=== PATIENT | male | born 1945 | race Caucasian/White ===

== ENCOUNTER 2018-02-13 12:46 | Emergency (ER) | payer MEDICARE ==
[2018-02-13 13:07] VITALS: BP 128/67
[2018-02-13] MEDS ORDERED: Silver Nitrate/Potassium Nitr* 1 EA STICK TOPICAL ONE (14:06)
--- NOTE | 2018-02-13 14:07 | UC ---
Throat Pain/Nasal Velasquez HPI - HPI Summary HPI Summary: Pt presents with recurrent epistaxis left nare. Pt states approx 1 week ago had nasal bleeding. PT was evaluated in and and then ED in [facility]. Pt states was cauterizied which worked for approx 5 days. starting yesterday again with nasal bleeding. Pt has been using flonase and decongestant as instructed. States started humidfying air this week. no fever, chills. no headache. no anticoagulant. No h/o hypertension. Pt moved to [place] this week - no PCP yet. Pt able to stop with direct palp. No current bleeding Pt's medications reviewed this visit - History of Current Complaint Chief Complaint: UCGeneralIllness Stated Complaint: RECURRENT NOSE BLEEDS Time Seen by Provider: 02/13/18 13:53 Hx Obtained From: Patient Onset/Duration: Sudden Onset Severity: Mild Pain Intensity: 0 - Allergies/Home Medications Allergies/Adverse Reactions: Allergies Allergy/AdvReac Type Severity Reaction Status Date / Time shellfish derived Allergy Severe Anaphylatic Verified 02/13/18 13:07 Shock Home Medications: Home Medications Fluticasone NASAL SPRAY 50MCG* [Flonase NASAL SPRAY 50MCG*] 2 spray BOTH NARES DAILY 02/13/18 [History Confirmed 02/13/18] Oxymetazoline 0.05% NASAL SPR* [Afrin 0.05% NASAL SPRAY*] 1 spray NASAL Q12H PRN 02/13/18 [History Confirmed 02/13/18] PMH/Surg Hx/FS Hx/Imm Hx Previously Healthy: Yes - Surgical History Surgical History: Yes Surgery Procedure, Year, and Place: left leg 1953. tonsils as child - Family History Known Family History: Positive: Other - non cotnirbutory - Social History Occupation: Retired Alcohol Use: None Substance Use Type: None Smoking Status (MU): Never Smoked Tobacco Review of Systems Constitutional: Negative Skin: Negative ENT: Epistaxis All Other Systems Reviewed And Are Negative: Yes Physical Exam - Summary Physical Exam Summary: Vital Signs Reviewed: Yes A+Ox3, no distress Eyes: Conjunctiva Clear, CHICO. EOM intact and full ENT: Hearing grossly normal TM x 2 clear Right nares - when viewed with scope pt started to bleed, anterior, septal. left without bleeding, mmoist, uvula midline, no exudate, no erythema Neck: Positive: Supple Respiratory: Positive: No respiratory distress, No accessory muscle use + CTA throughout no w/r Cardiovascular: RRR nl s1, s2 no m/r CBT <2 sec abd soft + BS nt/nd no guarding, no distension Musculoskeletal Exam: MUELLER x 4 without difficulty Strength Intact, ROM Intact Neurological: Positive: Alert, + sensation throughout Psychological: Positive: Normal Response To Family Skin: Positive: no rash, no ecchymosis Triage Information Reviewed: Yes Vital Signs: Initial Vital Signs Temp 98.0 F 02/13/18 13:02 Pulse 64 02/13/18 13:02 Resp 20 02/13/18 13:02 BP 128/67 02/13/18 13:02 Pulse Ox 96 02/13/18 13:02 Throat Pain/Nasal Course/Dx - Course Course Of Treatment: Pt with recurrent epistaxis right nares. Upon inspection, started to bleedi anterior right septal area direct pressue held. using silver nitrate cauterized with good hemostatis. Pt monitored - no recurrent bleeding. Made appt with [facility] on Friday at 1:45pm - pt to call to confirm. recommend humidified air. vasoline at oepning of nares. no blowing, picking. return precuations. pt comfortable and in agreement with plan - Differential Dx/Diagnosis Provider Diagnoses: epistaxis right nares Discharge - Sign-Out/Discharge Documenting (check all that apply): Patient Departure All imaging exams completed and their final reports reviewed: No Studies - Discharge Plan Condition: Stable Disposition: HOME Patient Education Materials: Nosebleed (ED) Referrals: [facility] [place] [facility] [Outside] No Primary Care Phys,NOPCP [Primary Care Provider] - [facility] Ent Provider,[facility] D [[email or web address], [employer], OTHER] - (Friday, 1:45pm) Additional Instructions: Do not rub, blow, or pick you nose It is recommmended you do no use your nasal sprays until you are seen in follow- up with ENT. You have an appointmenta at 1:45pm on Friday - you MUST call today to confirm this appointment- they are expecting you [address] [place] [address] . - It is recommended you put vasoline at the opening of your nose to keep air moist - If you develop a nose bleed - lean forward, hold steady pressure. If you are unable to control - return here, go to the emergency department, or contact the ENT office - humidify the air in the room where sleep - you have been given the contact information for the physician referral center - this office can help you establish with a new primary care provider - Billing Disposition and Condition Condition: STABLE Disposition: Home
== END 2018-02-13 14:35 | disposition home or self-care (01) ==
LOC: UCCORT 12:46
DX: R04.0 Epistaxis (principal); Z91.013 Allergy to seafood
CPT/HCPCS: 17250; 99201; A9270-GY; G0463

== ENCOUNTER 2018-08-26 12:10 | Emergency (ER) | payer MEDICARE ==
[2018-08-26 13:10] VITALS: BP 130/87
[2018-08-26 13:34] LABS: Influenza A Molecular NEGATIVE (Negative); Influenza B Molecular NEGATIVE (Negative)
--- NOTE | 2018-08-26 13:53 | UC ---
FLU HPI - HPI Summary HPI Summary: Pt c/o sudden onset of fever, body aches X 1 week. - History of Current Complaint Chief Complaint: UCRespiratory Stated Complaint: HEADACHE ACHY CHILLS Time Seen by Provider: 08/26/18 13:33 Hx Obtained From: Patient Onset/Duration: Sudden Onset, Lasting Days, Still Present Severity Currently: Mild Severity Initially: Mild Pain Intensity: 5 Associated Signs & Symptoms: Positive: Fever, Myalgia, Cough Related Hx: Possible Flu/Infectious Exposure - Risk Factors Influenza Risk Factors: Negative - Allergy/Home Medications Allergies/Adverse Reactions: Allergies Allergy/AdvReac Type Severity Reaction Status Date / Time shellfish derived Allergy Severe Anaphylatic Verified 08/26/18 13:10 Shock Home Medications: Home Medications Acetaminophen [Tylenol Extra Strength] 1 - 2 tab PO DAILY PRN 08/26/18 [History Confirmed 08/26/18] PMH/Surg Hx/FS Hx/Imm Hx Previously Healthy: Yes - Surgical History Surgical History: Yes Surgery Procedure, Year, and Place: left leg 1953. tonsils as child - Family History Known Family History: Positive: Cardiac Disease, Other - non cotnirbutory - Social History Occupation: Retired Lives: With Family Alcohol Use: None Substance Use Type: None Smoking Status (MU): Never Smoked Tobacco Have You Smoked in the Last Year: No Review of Systems All Other Systems Reviewed And Are Negative: Yes Constitutional: Positive: Fever, Chills, Fatigue Skin: Positive: Negative Eyes: Positive: Negative ENT: Positive: Sinus Congestion Respiratory: Positive: Shortness Of Breath, Cough Cardiovascular: Positive: Negative Gastrointestinal: Positive: Negative Genitourinary: Positive: Negative Motor: Positive: Negative Neurovascular: Positive: Negative Musculoskeletal: Positive: Myalgia Neurological: Positive: Negative Psychological: Positive: Negative Is Patient Immunocompromised?: No Physical Exam Triage Information Reviewed: Yes Appearance: Ill-Appearing Vital Signs: Initial Vital Signs Temp 99.9 F 08/26/18 13:00 Pulse 88 08/26/18 13:00 Resp 24 08/26/18 13:00 BP 130/87 08/26/18 13:00 Pulse Ox 97 08/26/18 13:00 Vital Signs Reviewed: Yes Eye Exam: Normal ENT: Positive: Nasal congestion Dental Exam: Normal Neck exam: Normal Respiratory Exam: Normal Cardiovascular Exam: Normal Musculoskeletal Exam: Normal Neurological Exam: Normal Psychological Exam: Normal Skin Exam: Normal Flu Course/Dx - Differential Dx/Diagnosis Differential Diagnosis/HQI/PQRI: Bronchitis, RSV Provider Diagnosis: Viral syndrome Discharge - Sign-Out/Discharge Documenting (check all that apply): Patient Departure All imaging exams completed and their final reports reviewed: No Studies - Discharge Plan Condition: Stable Disposition: HOME Patient Education Materials: Viral Syndrome (ED), Safe Use of NSAIDs (ED) [place]errals: [facility] [Outside] - As Soon As Possible No Primary Care Phys,NOPCP [Primary Care Provider] - - Billing Disposition and Condition Condition: STABLE Disposition: Home - Attestation Statements Provider Attestation: I was available for consult. This patient was seen by the SARAH. The patient was not presented to, seen by, or examined by me. -Fiona
== END 2018-08-26 14:05 | disposition home or self-care (01) ==
LOC: UCCORT 12:10
DX: B34.9 Viral infection, unspecified (principal); Z91.013 Allergy to seafood
CPT/HCPCS: 99212; G0463

== ENCOUNTER 2018-08-27 10:30 | Emergency (ER) | payer MEDICARE ==
[2018-08-27 11:44] VITALS: BP 125/68
[2018-08-27] MEDS ORDERED: methylPREDNISolone 125 MG* 2 ML VIAL IM ONE (12:49)
[2018-08-27] MEDS ORDERED: Famotidine TAB* 20 MG PO ONE (12:50)
--- NOTE | 2018-08-27 13:22 | UC ---
Skin Complaint HPI - HPI Summary HPI Summary: was seen here yesterday, diagnosed with viral syndrome. States red, itching area on hands, with swelling on L wrist, and L elbow. States elbow is hard to straighten. Denies any fever. Worsened over the night. - History of Current Complaint Chief Complaint: UCSkin Time Seen by Provider: 08/27/18 12:22 Stated Complaint: SKIN CONCERN Hx Obtained From: Patient Onset/Duration: Sudden Onset, Lasting Weeks - 1 Skin Exposure Onset/Duration: Weeks Ago - 1 Timing: Constant Onset Severity: Mild Current Severity: Moderate Pain Intensity: 6 Location: Diffuse Character: Swelling, Pruritus, Redness, Painful Aggravating Factor(s): Humidity, Touch Alleviating Factor(s): Nothing Associated Signs & Symptoms: Positive: Fever, Cough - Allergy/Home Medications Allergies/Adverse Reactions: Allergies Allergy/AdvReac Type Severity Reaction Status Date / Time shellfish derived Allergy Severe Anaphylatic Verified 08/27/18 11:39 Shock PMH/Surg Hx/FS Hx/Imm Hx Previously Healthy: Yes - Surgical History Surgical History: Yes Surgery Procedure, Year, and Place: left leg 1953. tonsils as child - Family History Known Family History: Positive: Cardiac Disease, Other - non cotnirbutory - Social History Alcohol Use: None Substance Use Type: None Smoking Status (MU): Never Smoked Tobacco Have You Smoked in the Last Year: No Review of Systems All Other Systems Reviewed And Are Negative: Yes Constitutional: Positive: Fever, Chills, Fatigue Skin: Positive: Rash Is Patient Immunocompromised?: No Physical Exam Triage Information Reviewed: Yes Appearance: No Pain Distress, Ill-Appearing, Obese Vital Signs: Initial Vital Signs Temp 100.8 F 08/27/18 11:39 Pulse 85 08/27/18 11:39 Resp 20 08/27/18 11:39 BP 125/68 08/27/18 11:39 Pulse Ox 95 08/27/18 11:39 Vital Signs Reviewed: Yes Eye Exam: Normal ENT Exam: Normal Dental Exam: Normal Neck exam: Normal Respiratory Exam: Normal Respiratory: Positive: Chest non-tender, Lungs clear, Normal breath sounds Cardiovascular Exam: Normal Cardiovascular: Positive: RRR, No Murmur, Pulses Normal Abdominal Exam: Normal Abdomen Description: Positive: Nontender, No Organomegaly, Soft Bowel Sounds: Positive: Present Musculoskeletal Exam: Normal Neurological Exam: Normal Psychological Exam: Normal Skin: Positive: Rashes - multiple hives on bilateral arms, warmth and erythema of bilateral elbows and wrists. Course/Dx - Course Course Of Treatment: take the medications as prescribed. 2. Follow up with the steam fitter helper, I have referred you to one locally, if you do not have one close to you. 3. If you develop any shortness of breath please report to ER. - Differential Diagnoses - Skin Complaint Differential Diagnoses: Abscess, Allergic Reaction, Cellulitis, Urticaria - Diagnoses Provider Diagnosis: Urticaria, Allergic reaction Discharge - Sign-Out/Discharge Documenting (check all that apply): Patient Departure All imaging exams completed and their final reports reviewed: No Studies - Discharge Plan Condition: Stable Disposition: HOME Prescriptions: Cephalexin CAP* [Keflex CAP*] 500 mg PO BID #14 cap Famotidine TAB* [Pepcid 20 MG TAB*] 20 mg PO DAILY #14 tab predniSONE [Prednisone 20 MG TAB] 20 mg PO DAILY #18 tablet Referrals: No Primary Care Phys,NOPCP [Primary Care Provider] - Mynor Gutierres MD [Medical Doctor] - Additional Instructions: 1. take the medication as prescribed. 2. Follow up with an steam fitter helper, i have made a referral to one locally, if you cannot find one where you live. 3. If you develop any shortness of breath report to ER. - Billing Disposition and Condition Condition: STABLE Disposition: Home - Attestation Statements Provider Attestation: I was available for consult. This patient was seen by the SARAH. The patient was not presented to, seen by, or examined by me. -Fiona
== END 2018-08-27 13:34 | disposition home or self-care (01) ==
LOC: UCCORT 10:30
DX: L50.9 Urticaria, unspecified (principal); T78.40XA Allergy, unspecified, initial encounter; Z91.013 Allergy to seafood; X58.XXXA Exposure to other specified factors, initial encounter
CPT/HCPCS: 87651; 96372; 99212; A9270-GY; G0463; J2930

== ENCOUNTER 2018-09-11 08:38 | Emergency (ER) | payer MEDICARE ==
[2018-09-11 08:56] VITALS: BP 119/70
--- NOTE | 2018-09-11 09:18 | UC ---
Skin Complaint HPI - HPI Summary HPI Summary: 73-year-old male 73-year-old male comes in with a chief complaint of a rash on both of his hands fevers and chills and some shortness of breath. Symptoms started 2 days ago. Patient had similar symptoms couple of weeks ago when the rash started on his hands and then moved up his arms and also had some on his chest. Backbend he was treated with Keflex Pepcid and prednisone and he improved. He just finished steroids 5 days ago and the present symptoms started 2 days ago. - History of Current Complaint Chief Complaint: UCGeneralIllness Time Seen by Provider: 09/11/18 08:58 Stated Complaint: CHILLS Pain Intensity: 6 - Allergy/Home Medications Allergies/Adverse Reactions: Allergies Allergy/AdvReac Type Severity Reaction Status Date / Time shellfish derived Allergy Severe Anaphylatic Verified 08/27/18 11:39 Shock PMH/Surg Hx/FS Hx/Imm Hx Previously Healthy: Yes - Surgical History Surgical History: Yes Surgery Procedure, Year, and Place: left leg 1953. tonsils as child - Family History Known Family History: Positive: Cardiac Disease, Other - non cotnirbutory - Social History Alcohol Use: None Substance Use Type: None Smoking Status (MU): Never Smoked Tobacco Have You Smoked in the Last Year: No Review of Systems All Other Systems Reviewed And Are Negative: Yes Constitutional: Positive: Fever, Chills, Other - reports had dizziness when taking keflex from last visit Skin: Positive: Other - see hpi Eyes: Positive: Negative ENT: Positive: Negative Respiratory: Positive: Shortness Of Breath, Cough Cardiovascular: Positive: Negative Gastrointestinal: Positive: Negative Genitourinary: Positive: Negative Motor: Positive: Negative Neurovascular: Positive: Negative Musculoskeletal: Positive: Myalgia Neurological: Positive: Negative Psychological: Positive: Negative Is Patient Immunocompromised?: No Physical Exam Triage Information Reviewed: Yes Appearance: Well-Appearing, No Pain Distress, Well-Nourished Vital Signs: Initial Vital Signs Temp 100.0 F 09/11/18 08:52 Pulse 85 09/11/18 08:52 Resp 19 09/11/18 08:52 BP 119/70 09/11/18 08:52 Pulse Ox 97 09/11/18 08:52 Vital Signs Reviewed: Yes Eye Exam: Normal Eyes: Positive: Conjunctiva Clear ENT: Positive: Pharynx normal. Negative: Nasal drainage Neck: Positive: Supple Respiratory: Positive: Lungs clear, Normal breath sounds, No respiratory distress Cardiovascular: Positive: RRR Musculoskeletal Exam: Normal Musculoskeletal: Positive: Strength Intact, ROM Intact Neurological Exam: Normal Neurological: Positive: Alert, Muscle Tone Normal Psychological: Positive: Age Appropriate Behavior Skin: Positive: Other - ERYTHEMATOUS PATCHES 2-3CM WITH FLAT BORDERS THAT JAZMIN ON HANDS AND FORE ARMS Course/Dx - Course Course Of Treatment: Patient Name: CAROLYN BAI Medical Record#: [id number] Ordering Physician: Leonardo Alejandro MD Acct.#: [id number] : 1945 Age: 73 Sex: M Location: [facility] Exam Date: 09/11/18909 ADM Status: REG ER Order Information: CHEST PA LAT 2 VWS Accession Number: [id number] CPT: 44622 HISTORY: fever,chills,sob,rash on arms COMPARISONS: None relevant available at the time of dictation. VIEWS: 4: Frontal dual-energy and lateral views of the chest. FINDINGS: CARDIOMEDIASTINAL SILHOUETTE: The cardiomediastinal silhouette is normal. CALLY: The cally are normal. PLEURA: The costophrenic angles are sharp. No pleural abnormalities are noted. LUNG PARENCHYMA: There is hyperinflation with flattening of the diaphragm and expansion of the AP diameter of the chest. ABDOMEN: The upper abdomen is clear. There is no subphrenic gas. BONES AND SOFT TISSUES: No bone or soft tissue abnormalities are noted. OTHER: None. IMPRESSION: HYPERINFLATION, CONSISTENT WITH COPD. NO ACTIVE CARDIOPULMONARY DISEASE. <Electronically signed by Paras Bustos MD in OV> 09/11/18926 I discussed the chest x-ray with the patient. At this time the cause of the rash fever and dyspnea is not clear. Patient reports improvement with the prior treatment with Keflex prednisone and Pepcid. Therefore we will treat the same way this time. Patient reports that he got dizzy last time when he took the Keflex therefore switching him over to Augmentin. We'll also treat with the prednisone taper and also Pepcid by mouth. Patient is from the [facility] and he does not have a primary care physician at this time as his primary care doctor . Patient states that he will contact the office today to get a new primary care physician. If the patient worsens he needs to get reevaluated sooner. CBC CRP CMP pending. - Diagnoses Provider Diagnosis: Rash, Fever, Dyspnea Discharge - Sign-Out/Discharge Documenting (check all that apply): Patient Departure All imaging exams completed and their final reports reviewed: Yes - Discharge Plan Condition: Stable Disposition: HOME Prescriptions: Amoxicillin/Clavulanate TAB* [Augmentin TAB 875*] 875 mg PO BID #20 tab Famotidine TAB* [Pepcid 20 MG TAB*] 20 mg PO BID #14 tab predniSONE TAB* [Deltasone 20 MG TAB*] 20 mg PO DAILY #18 tab Patient Education Materials: Fever in Adults (ED), Acute Rash (ED), Dyspnea (ED ) Referrals: [facility] [place] [facility] [Outside] [facility] [Outside] Additional Instructions: FOLLOW UP WITH YOUR DOCTOR. GET RECHECKED SOONER IF YOUR CONDITION WORSENS OR ANY QUESTIONS OR CONCERNS. - Billing Disposition and Condition Condition: STABLE Disposition: Home
[2018-09-11 14:03] LABS: ABS Lymphocytes 1.3 10^3/ul (1.0-4.8); ABS Monocytes 0.7 10^3/ul (0-0.8); ABS Neutrophils 5.4 10^3/ul (1.5-7.7); Eosinophil % 0.5 %; Hematocrit 38 % (42-52); Hemoglobin 12.9 g/dL (14.0-18.0); Lymphocyte % 17.8 %; Mean Corpuscular HGB Conc 34 g/dL (31-36); Mean Corpuscular Hemoglobin 30 pg (27-31); Mean Corpuscular Volume 88 fL (80-94); Mean Platelet Volume 8.1 fL (7.4-10.4); Platelet Count 175 10^3/uL (150-450); Red Blood Count 4.36 10^6 /uL (4.18-5.48); Red Cell Distribution Width 14 % (10.5-15); White Blood Count 7.5 10^3/uL (3.5-10.8)
[2018-09-11 14:07] LABS: Albumin 3.6 g/dL (3.2-5.2); Calcium 8.4 mg/dL (8.6-10.3); Potassium 4.2 mmol/L (3.5-5.0)
[2018-09-11 14:13] LABS: Albumin/Globulin Ratio 1.1 (1-3); BUN/Creatinine Ratio 18.5 (8-20); C Reactive Protein 150.33 mg/L (<8.01); EGFR Non-African American 93.4 (>60); Globulin 3.4 g/dL (2-4)
--- NOTE | 2018-09-12 08:24 | UC ---
- Progress Note Progress Note: Lab work comes back from September 11, 2018. Glucose is slightly elevated at 122. Normal ranges 70-100. Calcium slightly low at 8.4. Normal ranges 8.6-10.3. CRP is elevated at 150. Normal ranges less than 8. Nursing to call the patient and inform him of the lab values. If the patient is feeling worse any sick he needs to get reevaluated in an emergency department. If he is improving or not any worse than he needs to make sure he has a follow- up with his primary care physician. Overall if he has any concerns and feels the need to be reevaluated in emergency department would be the appropriate facility. Course/Dx - Diagnoses Provider Diagnoses: Rash, Fever, Dyspnea Discharge - Sign-Out/Discharge Documenting (check all that apply): Patient Departure All imaging exams completed and their final reports reviewed: Yes - Discharge Plan Condition: Stable Disposition: HOME Prescriptions: Amoxicillin/Clavulanate TAB* [Augmentin TAB 875*] 875 mg PO BID #20 tab Famotidine TAB* [Pepcid 20 MG TAB*] 20 mg PO BID #14 tab predniSONE TAB* [Deltasone 20 MG TAB*] 20 mg PO DAILY #18 tab Patient Education Materials: Fever in Adults (ED), Acute Rash (ED), Dyspnea (ED ) Referrals: [facility] [Outside] [facility] [place] [facility] [Outside] Additional Instructions: FOLLOW UP WITH YOUR DOCTOR. GET RECHECKED SOONER IF YOUR CONDITION WORSENS OR ANY QUESTIONS OR CONCERNS. - Billing Disposition and Condition Condition: STABLE Disposition: Home
== END 2018-09-11 09:44 | disposition home or self-care (01) ==
LOC: UCCORT 08:38
DX: R21 Rash and other nonspecific skin eruption (principal); R50.9 Fever, unspecified; R06.00 Dyspnea, unspecified; Z91.013 Allergy to seafood
CPT/HCPCS: 36415; 71046; 80053; 85025; 86140; 99212; G0463

== ENCOUNTER 2022-12-01 09:19 | Inpatient (IN) ==
[2022-12-01 09:55] LABS: ABS Lymphocytes 1.1 10^3/uL (1.0-4.8); ABS Monocytes 0.2 10^3/uL (0.0-1.1); ABS Neutrophils 5.3 10^3/uL (1.5-7.6); ABS Nucleated RBC 0.01 10^3/ul; Hematocrit 27.6 % (38-53); Hemoglobin 9.1 g/dL (13.2-16.3); Lymphocyte % 17.3 %; Mean Corpuscular Hemoglobin 29.6 pg (27-33); Mean Corpuscular Hgb Conc 32.8 g/dL (31-36); Mean Corpuscular Volume 90.2 fL (80-97); Nucleated Red Blood Cells % 0.2 /100 WBC (0.0-0.4); Platelet Count 191 10^3/uL (150-450); Red Blood Count 3.07 10^6/uL (4.06-5.63); White Blood Count 6.6 10^3/uL (3.6-10.2)
[2022-12-01 10:01] LABS: PO2 Arterial 80 mmHg (80-100)
[2022-12-01 10:04] LABS: PCO2 Arterial 73 mmHg (35-45)
[2022-12-01] MEDS ORDERED: Piperacillin/Tazobac 3.375 BAG 3.375 GM/100 ML BAG IV ONE (10:05)
[2022-12-01 10:13] LABS: Albumin 2.4 g/dL (3.2-5.2); Albumin/Globulin Ratio 0.6 (1-3); C Reactive Protein 83.39 mg/L (<8.01); Calcium 8.1 mg/dL (8.6-10.3); Creatinine, Serum 0.68 mg/dL (0.67-1.17); Globulin 3.9 g/dL (2-4); Total Bilirubin 0.6 mg/dL (0.2-1.0); Total Protein 6.3 g/dL (6.4-8.9); eGFR CKD-EPI 95.7 (>60)
[2022-12-01 10:14] LABS: Activated Partial Thrombo Time 33.6 seconds (26.0-38.0); INR 1.4 (0.88-1.18)
[2022-12-01 11:34] LABS: Resp Rate 10
[2022-12-01 11:37] LABS: PO2 Arterial 195 mmHg (80-100)
[2022-12-01 11:40] LABS: PCO2 Arterial 72 mmHg (35-45)
[2022-12-01 11:53] LABS: High Sensitivity Troponin 1 Hr 10 pg/mL (<20)
[2022-12-01] MEDS ORDERED: Norepinephrine 16MCG/ML BAGD5W 4,000 MCG/250 ML BAG IV ONE (14:40)
[2022-12-01] MEDS: Enoxaparin 40 MG/0.4 ML SYR SUBCUT SCH (14:43)
[2022-12-01] MEDS: Norepinephrine 16MCG/ML BAGD5W 4,000 MCG/250 ML BAG IV SCH (15:09)
[2022-12-01 15:13] LABS: Urine Appearance Turbid; Urine Bilirubin Negative (Negative); Urine Blood Negative (Negative); Urine Color Amber; Urine Glucose Negative (Negative); Urine Ketones Negative (Negative); Urine Nitrite Negative (Negative); Urine Protein 2+(100 mg/dL) (Negative); Urine Specific Gravity 1.027 (1.002-1.030); Urine Urobilinogen Negative (Negative)
[2022-12-01 15:46] LABS: Urine Bacteria 1+ (Absent); Urine Granular Casts Present (Absent); Urine Red Blood Cell Absent (Absent); Urine Renal Epithelial Cells Present (Absent); Urine White Blood Cell 3+(>20/hpf) (Absent)
[2022-12-01] MEDS ORDERED: Lidocaine 2% PF 5 ML VIAL ONE (15:48)
[2022-12-01] MEDS ORDERED: HYDROcodone/ACETAMIN 5/325 mg TAB PO PRN (16:23)
[2022-12-01] MEDS ORDERED: ZOSYN 3.375 GM Q8H per EXTENDED INFUSION IV SCH (17:00)
[2022-12-01] MEDS ORDERED: Zosyn per Pharmacy NOTE FOLLOW UP SCH (17:00)
[2022-12-01] MEDS ORDERED: Atropine 1% OPHTH.SOL 1 DROP BTL 2-5 ML SCH (17:30)
[2022-12-01 18:15] LABS: Hematocrit 25.7 % (38-53); Hemoglobin 8.5 g/dL (13.2-16.3)
[2022-12-01] MEDS ORDERED: Albuterol/Ipratropium RESP(NF) MDI (Combivent Respimat) INH SCH (21:00)
[2022-12-01] MEDS: Lidocaine PATCH 4% TOPICAL PRN (21:50)
[2022-12-01] MEDS: Morphine 2 MG/ML SYRINGE IV PRN (22:59)
[2022-12-02] MEDS ORDERED: Furosemide 40 mg/4 ml IV VIAL IV SLOW PU ONE (00:16)
[2022-12-02] MEDS ORDERED: Albumin Human 5% 12.5 GM/250 ML BTL IV ONE ×2 (00:17→00:24)
[2022-12-02 00:24] LABS: ABS Lymphocytes 1.6 10^3/uL (1.0-4.8); ABS Monocytes 0.2 10^3/uL (0.0-1.1); ABS Neutrophils 7.3 10^3/uL (1.5-7.6); ABS Nucleated RBC 0.02 10^3/ul; Eosinophil % 0.1 %; Hematocrit 27.2 % (38-53); Hemoglobin 9.2 g/dL (13.2-16.3); Lymphocyte % 17.3 %; Mean Corpuscular Hemoglobin 29.7 pg (27-33); Mean Corpuscular Hgb Conc 33.7 g/dL (31-36); Mean Platelet Volume 7.2 fL (7.5-11.2); Nucleated Red Blood Cells % 0.2 /100 WBC (0.0-0.4); Platelet Count 219 10^3/uL (150-450); Red Blood Count 3.09 10^6/uL (4.06-5.63); Red Cell Distribution Width 16.8 % (12-17); White Blood Count 9.2 10^3/uL (3.6-10.2)
[2022-12-02] MEDS ORDERED: Furosemide 40 mg/4 ml IV VIAL ONE (00:24)
[2022-12-02 01:37] LABS: High Sensitivity Troponin 1 Hr 10 pg/mL (<20)
[2022-12-02] MEDS: Norepinephrine 16MCG/ML BAGD5W 4,000 MCG/250 ML BAG IV SCH ×2 (01:50→15:49)
[2022-12-02 04:45] LABS: ABS Lymphocytes 1.5 10^3/uL (1.0-4.8); ABS Monocytes 0.2 10^3/uL (0.0-1.1); ABS Neutrophils 5.8 10^3/uL (1.5-7.6); ABS Nucleated RBC 0.01 10^3/ul; Eosinophil % 0.2 %; Hematocrit 24.6 % (38-53); Hemoglobin 8.3 g/dL (13.2-16.3); Lymphocyte % 20.1 %; Mean Corpuscular Hemoglobin 29.7 pg (27-33); Mean Corpuscular Hgb Conc 33.9 g/dL (31-36); Mean Corpuscular Volume 87.6 fL (80-97); Mean Platelet Volume 7.1 fL (7.5-11.2); Nucleated Red Blood Cells % 0.2 /100 WBC (0.0-0.4); Platelet Count 167 10^3/uL (150-450); Red Blood Count 2.81 10^6/uL (4.06-5.63); Red Cell Distribution Width 16.5 % (12-17); White Blood Count 7.5 10^3/uL (3.6-10.2)
[2022-12-02 05:02] LABS: Calcium 7.9 mg/dL (8.6-10.3); Creatinine, Serum 0.64 mg/dL (0.67-1.17); Magnesium 1.6 mg/dL (1.9-2.7); Potassium 3.7 mmol/L (3.5-5.0); eGFR CKD-EPI 97.5 (>60)
[2022-12-02] MEDS: Morphine 2 MG/ML SYRINGE IV PRN (05:05)
[2022-12-02] MEDS ORDERED: Magnesium Sulf 4 GM/100 ML IV 4,000 MG/100 ML BAG IVPB ONE (08:30)
[2022-12-02] MEDS ORDERED: Cholecalciferol (VIT D3) 1,000 unit TAB PO SCH (09:00)
[2022-12-02] MEDS ORDERED: Atropine 1% OPHTH.SOL 1 DROP BTL 2-5 ML SL SCH (09:00)
[2022-12-02] MEDS: Atropine 1% OPHTH.SOL 1 DROP BTL 2-5 ML SL SCH (10:08)
[2022-12-02] MEDS ORDERED: Zosyn per Pharmacy NOTE FOLLOW UP SCH (11:00)
[2022-12-02] MEDS: methylPREDNISolone SOD SUCC 40 mg/ml 1 ml VIAL IV SCH (11:36)
[2022-12-02] MEDS: ZOSYN 3.375 GM Q8H per EXTENDED INFUSION IV SCH ×2 (11:39→18:09)
[2022-12-02] MEDS: Enoxaparin 40 MG/0.4 ML SYR SUBCUT SCH (13:49)
[2022-12-02] MEDS: Mometasone 220 MCG MDI INH SCH (19:46)
[2022-12-02] MEDS: Famotidine IV 10 MG/ML 2 ml VIAL (20 mg) IV SLOW PU SCH (20:02)
[2022-12-02] MEDS: Acetaminophen IV 1 GM/100ML 1,000 MG/100 ML BAG IV PRN (20:03)
[2022-12-02] MEDS: Lidocaine PATCH 4% TOPICAL PRN (20:49)
[2022-12-03] MEDS ORDERED: Polyethylene Glycol 3350 17 GM PACKET ONE (02:09)
[2022-12-03] MEDS: ZOSYN 3.375 GM Q8H per EXTENDED INFUSION IV SCH ×3 (02:20→19:52)
[2022-12-03] MEDS: Norepinephrine 16MCG/ML BAGD5W 4,000 MCG/250 ML BAG IV SCH ×2 (02:21→14:23)
[2022-12-03] MEDS: Polyethylene Glycol 3350 17 GM PACKET PO SCH (04:12)
[2022-12-03 04:55] LABS: ABS Lymphocytes 1.6 10^3/uL (1.0-4.8); ABS Monocytes 0.2 10^3/uL (0.0-1.1); ABS Neutrophils 6.3 10^3/uL (1.5-7.6); ABS Nucleated RBC 0.01 10^3/ul; Hematocrit 21.9 % (38-53); Hemoglobin 7.3 g/dL (13.2-16.3); Lymphocyte % 19.5 %; Mean Corpuscular Hemoglobin 29.5 pg (27-33); Mean Corpuscular Hgb Conc 33.3 g/dL (31-36); Mean Corpuscular Volume 88.7 fL (80-97); Mean Platelet Volume 6.8 fL (7.5-11.2); Nucleated Red Blood Cells % 0.2 /100 WBC (0.0-0.4); Platelet Count 153 10^3/uL (150-450); Red Blood Count 2.47 10^6/uL (4.06-5.63); White Blood Count 8.1 10^3/uL (3.6-10.2)
[2022-12-03 05:10] LABS: Blood Urea Nitrogen 23 mg/dL (6-24); CO2 Carbon Dioxide 36 mmol/L (22-32); Calcium 7.2 mg/dL (8.6-10.3); Chloride 98 mmol/L (101-111); Creatinine, Serum 0.61 mg/dL (0.67-1.17); Glucose 405 mg/dL (70-100); Potassium 2.9 mmol/L (3.5-5.0); Sodium 133 mmol/L (135-145); eGFR CKD-EPI 98.9 (>60)
[2022-12-03 06:33] LABS: ABS Lymphocytes 1.5 10^3/uL (1.0-4.8); ABS Monocytes 0.2 10^3/uL (0.0-1.1); ABS Neutrophils 5.9 10^3/uL (1.5-7.6); ABS Nucleated RBC 0.01 10^3/ul; Eosinophil % 0.1 %; Hematocrit 23.2 % (38-53); Hemoglobin 8.2 g/dL (13.2-16.3); Lymphocyte % 19.8 %; Mean Corpuscular Hemoglobin 31.1 pg (27-33); Mean Corpuscular Hgb Conc 35.2 g/dL (31-36); Mean Corpuscular Volume 88.3 fL (80-97); Mean Platelet Volume 6.8 fL (7.5-11.2); Nucleated Red Blood Cells % 0.2 /100 WBC (0.0-0.4); Platelet Count 159 10^3/uL (150-450); Red Blood Count 2.63 10^6/uL (4.06-5.63); Red Cell Distribution Width 16.6 % (12-17); White Blood Count 7.7 10^3/uL (3.6-10.2)
[2022-12-03 06:47] LABS: Calcium 7.6 mg/dL (8.6-10.3); Creatinine, Serum 0.61 mg/dL (0.67-1.17); Potassium 3.1 mmol/L (3.5-5.0); eGFR CKD-EPI 98.9 (>60)
[2022-12-03] MEDS: methylPREDNISolone SOD SUCC 40 mg/ml 1 ml VIAL IV SCH (08:06)
[2022-12-03] MEDS ORDERED: Potassium Chlor 20 meq TAB.ER PO ONE (08:06)
[2022-12-03] MEDS: Famotidine IV 10 MG/ML 2 ml VIAL (20 mg) IV SLOW PU SCH (08:12)
[2022-12-03] MEDS: Atropine 1% OPHTH.SOL 1 DROP BTL 2-5 ML SL SCH (09:10)
[2022-12-03] MEDS ORDERED: Sulfur Hexaflouride MICROSPHR 25 MG VIAL ONE (10:24)
[2022-12-03] MEDS: Enoxaparin 40 MG/0.4 ML SYR SUBCUT SCH (13:13)
[2022-12-03] MEDS: Mometasone 220 MCG MDI INH SCH (19:00)
[2022-12-04] MEDS: ZOSYN 3.375 GM Q8H per EXTENDED INFUSION IV SCH ×3 (02:38→21:00)
[2022-12-04] MEDS: Norepinephrine 16MCG/ML BAGD5W 4,000 MCG/250 ML BAG IV SCH (02:38)
[2022-12-04 04:22] LABS: Hematocrit 23.4 % (38-53); Hemoglobin 7.9 g/dL (13.2-16.3); Mean Corpuscular Hemoglobin 29.6 pg (27-33); Mean Corpuscular Hgb Conc 33.6 g/dL (31-36); Mean Platelet Volume 6.5 fL (7.5-11.2); Platelet Count 138 10^3/uL (150-450); Red Blood Count 2.66 10^6/uL (4.06-5.63); Red Cell Distribution Width 16.8 % (12-17); White Blood Count 6.9 10^3/uL (3.6-10.2)
[2022-12-04 04:38] LABS: Calcium 7.2 mg/dL (8.6-10.3); Creatinine, Serum 0.5 mg/dL (0.67-1.17); Potassium 3.1 mmol/L (3.5-5.0); eGFR CKD-EPI 105.1 (>60)
[2022-12-04 05:18] LABS: Magnesium 1.7 mg/dL (1.9-2.7)
[2022-12-04] MEDS: KCL 20 MEQ/100 ML IVPREMIX 20 MEQ/100 ML BAG IV SCH ×2 (06:15→08:24)
[2022-12-04] MEDS ORDERED: Magnesium Sulfate IV 3 GM in NS 0.9% 100 ml BAG 100 ML IVPB ONE (07:40)
[2022-12-04] MEDS: Atropine 1% OPHTH.SOL 1 DROP BTL 2-5 ML SL SCH ×2 (08:02→08:07)
[2022-12-04] MEDS: Polyethylene Glycol 3350 17 GM PACKET PO SCH ×2 (08:02→08:05)
[2022-12-04] MEDS: Enoxaparin 40 MG/0.4 ML SYR SUBCUT SCH (13:02)
[2022-12-04] MEDS ORDERED: guaiFENesin 100 mg/5 ml LIQ unit dose cup PO PRN (16:39)
[2022-12-04] MEDS: Acetaminophen IV 1 GM/100ML 1,000 MG/100 ML BAG IV PRN (17:23)
[2022-12-04] MEDS: Mometasone 220 MCG MDI INH SCH (19:18)
[2022-12-04] MEDS: Morphine 2 MG/ML SYRINGE IV PRN (23:17)
[2022-12-05] MEDS: Norepinephrine 16MCG/ML BAGD5W 4,000 MCG/250 ML BAG IV SCH (01:19)
[2022-12-05] MEDS: ZOSYN 3.375 GM Q8H per EXTENDED INFUSION IV SCH ×2 (04:07→11:36)
[2022-12-05] MEDS: Morphine 2 MG/ML SYRINGE IV PRN ×4 (04:44→11:55)
[2022-12-05] MEDS: Atropine 1% OPHTH.SOL 1 DROP BTL 2-5 ML SL SCH (10:51)
[2022-12-05] MEDS: Polyethylene Glycol 3350 17 GM PACKET PO SCH (10:51)
[2022-12-05] MEDS ORDERED: Lorazepam PYXIS KEY PRN (12:07)
[2022-12-05] MEDS ORDERED: LORazepam 2 mg VIAL 1 ml IV PUSH PRN (12:07)
[2022-12-05] MEDS ORDERED: Morphine ORAL CONCENTRATE 5 MG/0.25 ML ORAL.SYRIN SL PRN (12:31)
[2022-12-05] MEDS: Morphine ORAL CONCENTRATE 5 MG/0.25 ML ORAL.SYRIN SL SCH ×3 (13:40→20:42)
[2022-12-05 14:16] VITALS: BP 79/55
[2022-12-05] MEDS ORDERED: HYDROmorphone 1 MG/1 ML SYRINGE IV SLOW PU STA (17:07)
[2022-12-05] MEDS ORDERED: HYDROmorphone PCA 20 MG/20 ML PCA.SYRING PCA SCH (18:00)
[2022-12-06] MEDS: Morphine ORAL CONCENTRATE 5 MG/0.25 ML ORAL.SYRIN SL SCH (00:58)
== END 2022-12-06 04:09 | disposition expired | DRG 189 ==
LOC: ED 09:19 → EDHOLD 13:00 → ICU 14:10
PROVIDERS: ADMIT Internal Medicine Critical Care Medicine; ATTEND Internal Medicine Critical Care Medicine